=== PATIENT | male | born 1945 | race Caucasian/White ===

== ENCOUNTER 2023-10-23 13:51 | Outpatient (CLI) | payer MEDICARE, OTHER, SELFPAY ==
--- NOTE | ~2023-10-23 | CT_ITS ---
. EXAMINATION: CT abdomen pelvis wo con DATE: 10/23/2023 14:08 INDICATION: Acute urinary retention TECHNIQUE: Computed tomography (CT) of the abdomen and pelvis was performed without intravenous contr ast. Automated exposure control and iterative reconstruction technique were employed. Exam dose: 106 8.73 mGy-cm total exam DLP. COMPARISON: None. FINDINGS: There is minimal infiltrate, atelectasis or fibrotic change at the lung bases. Normal heart size. Aortic valve calcification. Mitral annulus calcification. Coronary artery calcific ations. Calcification of the descending thoracic and abdominal aorta and calcifications at the origins of the celiac and superior mesenteric arteries. No aneurysm of the included descending thoracic aorta or ab dominal aorta. No pericardial or pleural effusion. Small sliding hiatal hernia. Calcified hepatic and splenic granulomas consistent with old granulomatous disease. No hepatic, splen ic, pancreatic, adrenal space-occupying mass lesion. Approximately 2.6 cm right renal cyst. No suspicious renal mass lesion is evident on this limited non contrast examination. No urinary tract calculus or hydroureteronephrosis is evident. There is a Hayden catheter within the urinary bladder. Prominent posterior left and right urinary blad julissa diverticula are suggested but the examination of the pelvic area is limited due to extensive stre ak artifact from right hip prosthesis. Prostate enlargement. This likely accounts for thickening of the urinary bladder wall. There is a left inguinal hernia containing a loop of left colon without strangulation or obstruction. There is diverticulosis of the left colon; no evidence of diverticulitis. Normal appendix. The cecum is medially directed, consistent with retained cecal mesentery. No intraperitoneal or retroperitoneal or pelvic mass lesion or adenopathy or ascites is detected. Very small fat-containing umbilical hernia. No bowel obstruction or bowel wall thickening, pneumatosis or intraperitoneal free air is detected. Right fat-containing inguinal hernia. Diffuse idiopathic skeletal hyperostosis of the thoracolumbar spine. No suspicious osteolytic or oste oblastic lesions are noted. 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 IMPRESSION: Prostate enlargement or urinary bladder wall thickening, prominent bilateral posterior l ateral probable urinary bladder diverticula Left inguinal hernia containing a loop of colon Fat-containing right inguinal hernia and small fat-containing umbilical hernia Colonic diverticulosis; no evidence of diverticulitis Normal appendix Approximately 2.6 cm right renal cyst Small sliding hiatal hernia Reviewed, dictated and finalized at [facility]. Reviewed, dictated and finalized at location L. NING CHECKER IMPRESSION: Prostate enlargement or urinary bladder wall thickening, prominent bilateral posterior lateral probable urinary bladder diverticula Left inguinal hernia containing a loop of colon Fat-containing right inguinal hernia and small fat-containing umbilical hernia Colonic diverticulosis; no evidence of diverticulitis Normal appendix Approximately 2.6 cm right renal cyst Small sliding hiatal hernia
== END 2023-10-23 13:52 | disposition home or self-care (01) ==
LOC: ANHIMG 13:52
PROVIDERS: PCP Physician Assistant Medical; Visit Provider Urology
DX: K40.90 Unilateral inguinal hernia, without obstruction or gangrene, not specified as recurrent (principal); K44.9 Diaphragmatic hernia without obstruction or gangrene; K57.30 Diverticulosis of large intestine without perforation or abscess without bleeding; N28.1 Cyst of kidney, acquired; R33.8 Other retention of urine
CPT/HCPCS: 74176

== ENCOUNTER 2023-10-30 11:03 | Outpatient (CLI) | payer MEDICARE, OTHER, SELFPAY ==
--- NOTE | ~2023-10-30 | XR_ITS ---
EXAMINATION: XR chest 2V 10/30/2023 11:57 INDICATION: Preop for hernia surgery PROCEDURE: PA and lateral views of the chest COMPARISON: No prior studies for comparison. FINDINGS: The lungs are clear. The cardiomediastinal silhouette is within normal limits. There are no pleural effusions. There is no pneumothorax suspected. Calcified granuloma of the right mid thor ax. IMPRESSION: 1: NO ACUTE CARDIOPULMONARY DISEASE. Reviewed, dictated and finalized at location L. NSED ARCHITECT
--- NOTE | 2023-10-30 11:12 | ECG_ITS ---
Measurements Intervals [place] Rate: 67 P: 59 [place]: 172 QRS: -19 QRSD: 104 T: 54 QT: 400 QTc: 424 Interpretive Statements SINUS RHYTHM DELAYED PRECORDIAL R/S TRANSITION BASELINE ARTIFACT- I, II, III, AVR, AVL, AVF, V1-V6 BORDERLINE ECG NO PREVIOUS ECG AVAILABLE FOR COMPARISON Electronically Signed On 10-30-2023 11:45:34 CARE CONSULTANT by Pedro Flores D.O.
[2023-10-30 11:55] LABS: Basophils Absolute Auto 0.1 K/mm3 (0.0-0.1); Basophils Percent Auto 0.6 % (0.2-1.2); Eosinophils Absolute Auto 0.5 K/mm3 (0-0.3); Eosinophils Percent Auto 4.8 % (0-4.4); Hematocrit 45.2 % (42.0-52.0); Hemoglobin 15.1 g/dL (14.0-18.0); Immature Granulocyte Absolute 0.04 K/mm3 (0.00-0.031); Immature Granulocyte Percent A 0.4 % (0-0.5); Lymphocytes Percent Auto 17.7 % (18.3-44.2); Mean Corpuscular HGB Conc 33.4 g/dl (32-36); Mean Corpuscular Hemoglobin 33.4 pg (26-34); Mean Platelet Volume 9.7 fl (7.4-10.4); Monocytes Absolute Auto 0.8 K/mm3 (0.1-0.6); Monocytes Percent Auto 8.4 % (2.6-8.5); Neutrophils Absolute Auto 6.5 K/mm3 (1.3-6.7); Neutrophils Percent Auto 68.1 % (45.5-73.1); Platelet Count Result 222 k/mm3 (150-375); Red Blood Count 4.52 M/mm3 (4.6-6.20); Red Cell Distribution Width 12.2 % (11.5-14.5); White Blood Count 9.6 K/mm3 (4.5-10.0)
[2023-10-30 12:07] LABS: Anion Gap 9 mmol/L (8-16); Blood Urea Nitrogen 16 mg/dL (9-20); Calcium 8.8 mg/dL (8.4-10.2); Carbon Dioxide 24 mmol/L (22-30); Chloride 105 mmol/L (98-107); Estimated Glomerular Filt Rate > 60; Glucose 104 mg/dL (65-110); Potassium 4.3 mmol/L (3.4-5.0); Sodium 138 mmol/L (137-145)
== END 2023-10-30 11:04 | disposition home or self-care (01) ==
LOC: ANHSURGERY 11:07
PROVIDERS: PCP Physician Assistant Medical; Visit Provider Surgery
DX: Z01.818 Encounter for other preprocedural examination (principal); K40.90 Unilateral inguinal hernia, without obstruction or gangrene, not specified as recurrent; R93.1 Abnormal findings on diagnostic imaging of heart and coronary circulation
CPT/HCPCS: 36415; 71046; 80048; 85025; 93005

== ENCOUNTER 2023-10-31 01:35 | Day surgery (SDC) | payer MEDICARE, OTHER, SELFPAY ==
--- NOTE | 2023-10-29 09:26 | PC.NURSE ---
Report to the Outpatient Waiting Room, entrance under the green pavilion located off [facility], at time _0800 on date __10/31/23 . Planned Procedure Time: _1000 . Time changes happen often and if your time is changed the preop area will call you the afternoon before. - You and your visitor will be asked to self-screen and do not enter if you have any COVID symptoms. - A mask is optional within the hospital at this time. Patients may have clear liquids (water, carbonated beverages, clear teas, apple juice) until 3 hours prior to surgery( 7:00 AM) with a maximum of 20 ounces. - No food from midnight until time of surgery - Infants may have breast milk until 4 hours before surgery, formula 6 hours prior to surgery. - Children will be allowed to drink immediately following surgery. If applicable, please bring a bottle or sippy cup to assist with drinking. Juice, water, soda, and popsicles are readily available. For infants on formula, please bring formula the day of surgery. Pacifiers are allowed. Take the following medications with a SIP of water the morning of surgery: ___NONE DO NOT STOP ANY OF YOUR OTHER PRESCRIPTION MEDICATIONS PRIOR TO SURGERY ?EXCEPT THE FOLLOWING Medications to discontinue per physician _MAY CONTINUE ASPIRIN PER DR JONES DON'T TAKE MORNING OF SURGERY. HOLD ALL VITAMINS 3 DAYS PRE OP .PT STATES LAST DOSE 10/29/23 Please no make-up, nail sinhala, hairspray, perfume, deodorant, or body powder the day of surgery. No jewelry (including any body piercings) or valuables the day of surgery, leave them at home. Please take a shower or bath the night before, or the morning of, surgery with an antibacterial soap. Wear comfortable, loose fitting clothing. Children are encouraged to wear pajamas. - Jewelry must be removed prior to entering the operating room. Rings and piercings that are not removed may be cut off. - The hospital will not accept responsibility for valuables. - Please leave all valuables, including medications, at home the day of surgery. If you are going home after surgery, a licensed compactor driver must drive you home. - NO public transportation without another adult if you receive anesthesia. - We recommend that an adult stay with you for 24 hours following discharge. - We also recommend that you do not drive, make important decision, drink alcoholic beverages, or take any drugs that were not prescribed by your health care provider for at least 24 hours after your discharge time. Follow any additional instructions given to you from your surgeon. If you or anyone in your household have experienced Covid symptoms in the past week, please notify your surgeon or the nurse liaison at the phone number below for possible testing. Telephone instructions given to _PATIENT AND DELORIS and asked if any additional questions and then verbalized understanding. Patient advised to call surgeon office or pre surgery nurse liaison [phone] if any additional questions.
[2023-10-29 09:37] VITALS: BMI 29.2
--- NOTE | 2023-10-30 09:43 | WPDANESEPPF ---
Anes - Initial Pre Proc Eval Procedure: Operation Date: 10/31/23 09:00 Proposed Procedures p Open Sliding Left Inguinal Hernia Repair with Mesh - Thomas Barrrea MD Date/Time: 10/30/23 09:43 Surgeon: Thomas Barrera MD Pre Op Diagnosis: Lt Sliding Ing Hernia, Hx of Right Ing Hernia Rep Patient Data Age: 78 Gender: M Height: 1.83 m Weight: 97.6 kg Allergies Allergy/AdvReac Type Severity Reaction Status Date / Time No Known Allergies Allergy Verified 10/31/23 08:04 Home Medications Medication Instructions Recorded Confirmed Type alfuzosin 10 mg tablet,extended 10 mg PO BID 06/19/23 10/31/23 History release 24 hr aspirin 81 mg tablet,delayed 81 mg PO DAILY 06/19/23 10/31/23 History release (Adult Low Dose Aspirin) finasteride 5 mg tablet 5 mg PO DAILY 06/19/23 10/31/23 History acetaminophen 500 mg capsule 500 mg PO Q6H PRN Pain 10/29/23 10/31/23 History wlhxtozz-ftfrkhkn-nubcc acid 400 1 tablet PO DAILY 10/29/23 10/31/23 History mcg-vit K 20 mcg-lycop 300 mcg tablet oxybutynin chloride 5 mg tablet 5 mg PO MONTHLY 10/29/23 10/31/23 History Patient hx anesthesia problems: none Family hx anesthesia problems: none Results Review: All pre-operative results and documents have been reviewed as part of the pre-operative evaluation. [facility] Past Medical History Medical History (Updated 10/31/23 @ 08:16 by Vivek Mcdonald DO) Chronic indwelling Hayden catheter Diastolic murmur Diverticulosis History of pulmonary embolism 2020 Urinary incontinence Surgical History Surgical History (Updated 10/25/23 @ 10:10 by Tatiana Mc) History of hip replacement right 2006, 2021 History of inguinal hernia repair right History of right inguinal hernia repair Family History Family History (Updated 10/25/23 @ 09:28 by Christal Hayden CMA) Mother Cancer Social History Social History (Updated 10/25/23 @ 09:27 by Christal Hayden CMA) Smoking packs per day: 1 Smoking cigarettes per day: 20.0 Years smoked: 10 Smoking pack-years: 10.00 Smoking status: Former smoker Tobacco type: cigarettes Smoking end date: 04/07/71 Alcohol intake: never Drinks per week: 7 Alcohol use details: beer Substance use: never Substance use type: does not use Lack of Transportation: No Lack of Food: Never True Current Housing: I Have Housing Concerned About Future Housing: No Difficulty Paying Gas/Electric Bills: No Difficulty Paying for Meds: No Currently Unemployed: No Difficulty w/ Childcare or Family Care: No Living arrangements: with family Additional living arrangements comments: Occupation/Education: retired Gender identity (if verbalized by the patient): Male Sexual Orientation (if Verbalized by the Patient): Straight or Heterosexual Spiritual care concerns: No Anes - Eval Final PreProcedure Day of Procedure 10/30/23 09:43 Patient weight: overweight Heart: regular rate and rhythm Lungs: clear to auscultation Airway: Mallampati scale class II Neurological: alert and oriented Last oral intake: >/= 8 hours ASA classification: II Emergent: no Anesthetic plan: proceed Anesthesia type and monitoring: general GIVS and standard monitoring Results Review: All pre-operative results and documents have been reviewed as part of the pre-operative evaluation. Informed Consent: The patient's anesthetic plan and its attendant risks and benefits were discussed with the patient/family/POA. Questions were solicited and answers provided to the satisfaction of the patient/family/POA.
[2023-10-31 06:51] VITALS: BP 153/84; PULSE 73; RESP 18; TEMP 36.4; O2SAT 97
[2023-10-31] MEDS: LACTATED RINGERS 1,000 ML 30 ML IV CONT ×2 (07:30→11:19)
[2023-10-31] MEDS: KETOROLAC 15 MG/ML VIAL (*BKC) IV PUSH (07:36)
[2023-10-31] MEDS: ACETAMINOPHEN 500 MG TABLET 1000 MG PO (07:36)
--- NOTE | 2023-10-31 09:13 | WPDHPUPDATE1 ---
History and Physical Update Update Date/Time: 10/31/23 09:13 History and Physical has been reviewed, including an updated exam of the patient. There are NO changes in the patient's condition. Risks, benefits, and alternatives have been discussed and questions answered. Patient agrees to proceed with procedure.
[2023-10-31] MEDS: ceFAZolin 2 GM/D5W 50 ML 2 GM/50 ML BAG IVPB (09:17)
[2023-10-31] MEDS: BUPivacaine HCL 0.5% PF 30 ML VIAL INFILTRATE (09:45)
[2023-10-31] MEDS: LIDO 1%/EPINEPHRINE 1:100,000 50 ML VIAL 30 ML INFILTRATE (09:45)
[2023-10-31 11:19] VITALS: BP 143/73; PULSE 92; RESP 12; TEMP 36.2; O2SAT 96
--- NOTE | 2023-10-31 11:26 | W.PM.PROC2 ---
Procedure Note - Detailed Date of Procedure 10/31/23 Pre-op Diagnosis Lt Sliding Ing Hernia, Hx of Right Ing Hernia Rep Post-op Diagnosis Other (Large direct left inguinal hernia, reducible) Procedure Performed Open left inguinal hernia repair with Ultrapro hernia system mesh. Surgeon hTomas Barrera MD Television Writer Paulette Vela, KRISTEN Anesthesia General Indications Patient is a 78-year-old gentleman who has a prior right inguinal hernia repair x2. He has had a left inguinal hernia for about 10 years has progressively enlarged in size. Examination revealed him to have a large reducible left inguinal hernia which on imaging had some colon within the hernia. He presents now for elective repair the hernia with mesh reinforcement via open approach. Findings Patient had a large direct defect in the right inguinal region. Preperitoneal fat and the peritoneum was reduced. There was no colon out in the hernia defect time of surgery. It had been reduced. Description of Procedure After informed consent was obtained patient brought to the operating room was placed supine position and general LMA anesthesia was administered. The bilateral lower abdomen and bilateral groins were then prepped and draped usual sterile fashion. A time-out was then performed correctly identifying the patient as well as procedure to be performed. Site marking was identified and he was given perioperative IV antibiotics. I then started by making a oblique incision in left groin region about 2 fingerbreadths above the left pubic tubercle. Dissection carried down through the subcu tissues and down through Shakir's fascia electrocautery. The external oblique aponeurosis was identified external ring was identified as well. I then dissected the subcutaneous tissues off the external oblique aponeurosis with electrocautery. I then incised the external oblique aponeurosis lungs rectal was fibers with the scalp was then opened widely out through the external ring utilized electrocautery. I then the external oblique aponeurosis from the underlying internal oblique muscle fibers the cremasteric muscle fibers utilized electrocautery. I then isolated the cord structures with blunt finger dissection at the pubic tubercle and placed a Sofi drain around the cord structures day with retraction. I then further divided the cremasteric muscle fibers a mobilized the cord. Looking at the floor of the inguinal canal there was a large direct defect medial to the inferior epigastric vessels. Then proceeded to dissect the hernias sac and attenuated transversalis fascia away from the other cord structures. I then explored the cord I did not identify any evidence of an indirect inguinal hernia sac but there was a cord lipoma. The cord lipoma was dissected free of the vas deferens and testicular vessels. It was resected at the level of the internal ring and discarded. The proximal portion was ligated with 3-0 Vicryl suture. I then proceeded to incise the attenuated transversalis muscle fibers. These muscle fibers were resected and discarded. This allowed me to gain access into the preperitoneal space. The preperitoneal fat and the pseudo sac of the hernia was reduced with blunt finger and sponge dissection. This was easily done as this was a large defect and the whole myopectineal orifice was dissected out. I then chose a extra-large extended piece of UHS mesh with the underlying mesh in an oval configuration. The oval lying mesh was placed through the floor of the inguinal canal and spread out widely to cover the whole myopectineal orifice. Was placed deep to the inferior epigastric vessels. I then closed the floor of the inguinal canal by imbricating and reapproximating the edges of the attenuated muscle fibers of the transversalis fascia with a running 2-0 Vicryl suture. The mildly dilated internal ring was also closed down tighter around the cord structures with some running 2-0 Vicryl sutures. T
[2023-10-31 11:35] VITALS: BP 121/68; PULSE 94; RESP 15; O2SAT 94
[2023-10-31 11:50] VITALS: BP 123/70; PULSE 88; RESP 14; O2SAT 94
[2023-10-31 12:25] VITALS: BP 151/69; PULSE 82; RESP 16
[2023-10-31] MEDS: oxyCODONE HCL (*CRX) 5 MG TAB IR PO (12:36)
[2023-10-31 12:55] VITALS: BP 134/68; PULSE 77; RESP 16
== END 2023-10-31 13:25 | disposition home or self-care (01) ==
PROVIDERS: PCP Physician Assistant Medical; Visit Provider Surgery
PROC: (CPT 49505; principal; 2023-10-31 09:00)
DX: K40.90 Unilateral inguinal hernia, without obstruction or gangrene, not specified as recurrent (principal); Z79.82 Long term (current) use of aspirin; Z86.711 Personal history of pulmonary embolism; Z87.891 Personal history of nicotine dependence
CPT/HCPCS: 49505; A9270; C1781; J0690; J1100; J1170; J1885; J2405; J2704; J7120

== ENCOUNTER 2023-11-08 00:58 | Day surgery (SDC) | payer MEDICARE, OTHER, SELFPAY ==
[2023-10-29 10:14] VITALS: BMI 29.2
--- NOTE | 2023-10-29 10:38 | PC.NURSE ---
Report to the Outpatient Waiting Room, entrance under the green pavilion located off [facility], at time __10:00AM on date _11/08/23 . Planned Procedure Time: __12:00PM . Time changes happen often and if your time is changed the preop area will call you the afternoon before. - You and your visitor will be asked to self-screen and do not enter if you have any COVID symptoms. - A mask is optional within the hospital at this time. Patients may have clear liquids (water, carbonated beverages, clear teas, apple juice) until 3 hours prior to surgery with a maximum of 20 ounces. - No food from midnight until time of surgery. Take the following medications with a SIP of water the morning of surgery: ___NONE DO NOT STOP ANY OF YOUR OTHER PRESCRIPTION MEDICATIONS PRIOR TO SURGERY ?EXCEPT THE FOLLOWING Medications to discontinue per physician __HOLD ASPIRIN 7 DAYS PRE-OP PER DR GEE- LAST DOSE 10/31/23. HOLD ALL VITAMINS/SUPPLEMENTS 3 DAYS PRE-OP PER ANESTHESIA- LAST DOSE 11/04/23. Please no make-up, nail marshallese, hairspray, perfume, deodorant, or body powder the day of surgery. No jewelry (including any body piercings) or valuables the day of surgery, leave them at home. Please take a shower or bath the night before, or the morning of, surgery with an antibacterial soap. Wear comfortable, loose fitting clothing. - Jewelry must be removed prior to entering the operating room. Rings and piercings that are not removed may be cut off. - The hospital will not accept responsibility for valuables. - Please leave all valuables, including medications, at home the day of surgery. If you are going home after surgery, a licensed motorcoach driver must drive you home. - NO public transportation without another adult if you receive anesthesia. - We recommend that an adult stay with you for 24 hours following discharge. - We also recommend that you do not drive, make important decision, drink alcoholic beverages, or take any drugs that were not prescribed by your health care provider for at least 24 hours after your discharge time. Follow any additional instructions given to you from your surgeon. If you or anyone in your household have experienced Covid symptoms in the past week, please notify your surgeon or the nurse liaison at the phone number below for possible testing. Telephone instructions given to ___PATIENT and asked if any additional questions and then verbalized understanding. Patient advised to call surgeon office or pre surgery nurse liaison [phone] if any additional questions.
[2023-11-08] VITALS (9 sets, daily range): BP systolic 151–189; BP diastolic 73–89; PULSE 61–82; RESP 14–18; TEMP 36.7; O2SAT 98–100
--- NOTE | 2023-11-08 06:23 | WPDHPUPDATE1 ---
History and Physical Update Update Date/Time: 11/08/23 06:23 History and Physical has been reviewed, including an updated exam of the patient. There are NO changes in the patient's condition. Risks, benefits, and alternatives have been discussed and questions answered. Patient agrees to proceed with procedure.
--- NOTE | 2023-11-08 11:45 | WPDANESEPPF ---
Anes - Initial Pre Proc Eval Procedure: Operation Date: 11/08/23 12:00 Proposed Procedures p Cystoscopy with Suprapubic Catheter Placement - Joel Hedrick MD Date/Time: 11/08/23 11:45 Surgeon: Joel Hedrick MD Pre Op Diagnosis: Acute Urinary Retention Patient Data Age: 78 Gender: M Height: 1.83 m Weight: 100 kg Last Vital Signs Temp 98.1 F 11/08/23 10:17 Pulse 61 11/08/23 10:17 Resp 14 11/08/23 10:17 BP 157/79 H 11/08/23 10:17 Pulse Ox 99 11/08/23 10:17 O2 Del Method Room Air 11/08/23 10:17 Allergies Allergy/AdvReac Type Severity Reaction Status Date / Time No Known Allergies Allergy Verified 10/31/23 08:04 Home Medications Medication Instructions Recorded Confirmed Type alfuzosin 10 mg tablet,extended 10 mg PO BID 06/19/23 10/31/23 History release 24 hr aspirin 81 mg tablet,delayed 81 mg PO DAILY 06/19/23 10/31/23 History release (Adult Low Dose Aspirin) finasteride 5 mg tablet 5 mg PO DAILY 06/19/23 10/31/23 History acetaminophen 500 mg capsule 500 mg PO Q6H PRN Pain 10/29/23 10/31/23 History tchldkfa-widqkyvk-rwwdm acid 400 1 tablet PO DAILY 10/29/23 10/31/23 History mcg-vit K 20 mcg-lycop 300 mcg tablet oxybutynin chloride 5 mg tablet 5 mg PO MONTHLY 10/29/23 10/31/23 History oxycodone 5 mg tablet 5 mg PO Q6H PRN pain #20 tabs 10/31/23 Rx Patient hx anesthesia problems: none Family hx anesthesia problems: none Results Review: All pre-operative results and documents have been reviewed as part of the pre-operative evaluation. [facility] Past Medical History Medical History (Updated 10/31/23 @ 08:16 by Vivek Mcdonald DO) Chronic indwelling Hayden catheter Diastolic murmur Diverticulosis History of pulmonary embolism 2020 Urinary incontinence Surgical History Surgical History (Updated 10/31/23 @ 11:23 by Thomas Barrera MD) History of hip replacement right 2006, 2021 History of inguinal hernia repair right History of right inguinal hernia repair Family History Family History (Updated 10/25/23 @ 09:28 by Christal Hayden CMA) Mother Cancer Social History Social History (Updated 10/25/23 @ 09:27 by Christal Hayden CMA) Smoking packs per day: 1 Smoking cigarettes per day: 20.0 Years smoked: 10 Smoking pack-years: 10.00 Smoking status: Former smoker Tobacco type: cigarettes Smoking end date: 04/07/71 Alcohol intake: never Drinks per week: 7 Alcohol use details: beer Substance use: never Substance use type: does not use Lack of Transportation: No Lack of Food: Never True Current Housing: I Have Housing Concerned About Future Housing: No Difficulty Paying Gas/Electric Bills: No Difficulty Paying for Meds: No Currently Unemployed: No Difficulty w/ Childcare or Family Care: No Living arrangements: with family Additional living arrangements comments: Occupation/Education: retired Gender identity (if verbalized by the patient): Male Sexual Orientation (if Verbalized by the Patient): Straight or Heterosexual Spiritual care concerns: No Anes - Eval Final PreProcedure Day of Procedure 11/08/23 11:45 Patient weight: normal Heart: regular rate and rhythm Lungs: clear to auscultation Airway: Mallampati scale class II Neurological: alert and oriented Last oral intake: >/= 8 hours ASA classification: II Emergent: no Anesthetic plan: proceed Anesthesia type and monitoring: general LMA and standard monitoring Results Review: All pre-operative results and documents have been reviewed as part of the pre-operative evaluation. Informed Consent: The patient's anesthetic plan and its attendant risks and benefits were discussed with the patient/family/POA. Questions were solicited and answers provided to the satisfaction of the patient/family/POA.
[2023-11-08] MEDS: ceFAZolin 2 GM/D5W 50 ML 2 GM/50 ML BAG IVPB (12:00)
[2023-11-08] MEDS: LIDOCAINE HCL 1% LOCAL INJ 20 ML VIAL INFILTRATE (12:26)
[2023-11-08] MEDS: LIDOCAINE HCL 2% GEL UROJET 10 ML PKG MUCOUS MEM (12:26)
--- NOTE | 2023-11-08 12:41 | W.PM.PROC2 ---
Procedure Note - Detailed Date of Procedure 11/08/23 Pre-op Diagnosis Chronic Urinary Retention Post-op Diagnosis Same Procedure Performed Cystoscopy, placement suprapubic catheter Surgeon Joel Hedrick MD Anesthesia General Description of Procedure Patient is brought to the operative suite where he has prepped and draped in routine sterile fashion while in a dorsal lithotomy position. Cystoscopy is undertaken with a 21 F rigid cystoscope. He has no urethral strictures with moderate lateral lobe hyperplasia of the prostate. Bladder mucosa is normal with only minimal hyperemia in the posterior wall consistent with catheter cystitis. There is no intravesical foreign body or neoplasm. I filled his bladder with saline and placed a spinal needle through the dome of the bladder 1035 in glidewire was advanced through that and grasped with the cystoscope. I dilated the suprapubic tract with Amplatz dilators to from 8 F to 22 F. I then placed an 18 F Councill tip catheter through the dome. The suprapubic catheter secured with a 3-0 nylon. Scopes wires removed. Blood loss was approximately 5 cc. Drains No Packing No Pathology None sent
[2023-11-08] MEDS: LACTATED RINGERS 1,000 ML 30 ML IV CONT (12:45)
== END 2023-11-08 14:35 | disposition home or self-care (01) ==
PROVIDERS: PCP Physician Assistant Medical; Visit Provider Urology
PROC: 0T9B30Z Drainage of Bladder with Drainage Device, Percutaneous Approach (ICD-10-PCS; CPT 51102; principal; 2023-11-08 12:00)
DX: N40.1 Benign prostatic hyperplasia with lower urinary tract symptoms (principal); R33.8 Other retention of urine; Z79.82 Long term (current) use of aspirin; Z87.891 Personal history of nicotine dependence
CPT/HCPCS: 51040; C1726; C1769; J0690; J2405; J2704; J3010; J7120